=== PATIENT | female | born 1985 | race Caucasian/White ===

== ENCOUNTER 2020-07-12 20:22 | Emergency (ER) | payer MEDICARE, MEDICAID, SELFPAY ==
--- NOTE | 2020-07-12 20:34 | ED.OVERDOSE ---
HPI - Overdose General Chief Complaint: Overdose Stated Complaint: OVERDOSE,NARCAN GIVEN Source: patient, EMS and police Mode of arrival: EMS Limitations: no limitations History of Present Illness HPI Narrative: 34-year-old female presents via EMS by police escort for overdose. Patient was found unresponsive by bystanders, given several doses of Narcan and brought to the emergency department for evaluation. Patient is angry, crying, asking us not to take her belongings, stating that this is against her rights as a person, she states that she has not suicidal or homicidal, reports that she was just ?taking a nap in the hallway?. She does report to using heroin earlier today. She is not answering any questions regarding health history. complaint: accidental overdose Onset (ago): hour(s) (Within the hour of arrival) Timing confirmed by: other Intent: other (Accidental overdose) Context: Accidental Overdose: wanted to get high Treatments Prior to Arrival: narcan Related Data Allergies Allergy/AdvReac Type Severity Reaction Status Date / Time latex [LATEX] Allergy Mild SWELLING Verified 07/12/20 20:35 haloperidol [From HALDOL] Allergy Unknown HIVES Verified 07/12/20 20:35 From HALDOL Allergy Unknown HIVES Uncoded 01/13/20 17:08 Review of Systems Review of Systems: Constitutional: No Fever, No Chills ENT/Mouth: No sore throat, No Rhinorrhea Eyes: No Eye Pain, No Swelling, No Redness Cardiovascular: No Chest Pain, No SOB Respiratory: No Cough, No Sputum Gastrointestinal: No Nausea, No Vomiting, No Diarrhea, No abdominal Pain Genitourinary: No Dysuria, No Hematuria Musculoskeletal: No joint pain, No Myalgias, No Joint Swelling Skin: No Skin Lesions, No rash Neuro: No Weakness, No Numbness, No Loss of Consciousness, No Dizziness, No Headache Psych: No Anxiety, No Depression, No SI/HI/AH/VH Heme/Lymph: No Bruising, No Bleeding,No Lymphadenopathy Endocrine: No Polyuria, No Polydipsia Yes all other systems are reviewed and are negative [facility] Past Medical History Attestation statement: The following information was validated with the patient. Source: old records reviewed Social History Social History Advance Directives: No Physical Exam Vital Signs: Vital Signs: Last Vital Signs Temp 97.8 F 03/17/21 20:36 Pulse 130 H 07/12/20 20:36 Resp 16 07/12/20 20:36 BP 145/73 H 07/12/20 20:36 Pulse Ox 96 07/12/20 20:36 Body Mass Index 23.3 Appearance: Alert. Oriented X3. No acute distress. Eyes: Pupils equal, round and reactive to light. ENT: Pharynx normal. Neck: Normal inspection. Neck supple. CVS: Normal heart rate and rhythm. Pulses normal. Respiratory: No respiratory distress. Breath sounds normal. Abdomen: Soft and nontender. Skin: Skin warm and dry. Normal skin color. Normal skin turgor. Extremities: No lower extremity edema. Neuro: No motor deficit. No sensory deficit. Course Course Course Narrative: 34-year-old female presents via EMS and police for overdose. Given several doses of Narcan by bystanders. Patient is angry, anxious, does not want her belongings taken away from her. I suspect that she is homeless and these are all the belongings that she has in her possession. Patient is agreed to allow the possessions to be placed behind her stretcher. She does understand that if she reaches into her bag for anything at all that they would be taken away. Once she realized that her belongings would stay with her she was calm and cooperative. Her vital signs were taken during time of emotional distress. Patient was offered track coach, she agreed. No detox beds available, plan is for patient find detox on her own in the morning. 9:40 p.m. patient is alert oriented x4, answering questions politely and appropriately, maintaining O2 sats at 99% room air, heart rate 87, blood pressure 122/75, respiration rate 16 even unlabored. Patient discharged home. MDM - Overdose Differential Diagnosis Differential diagnosis: Likely drug overdose Medical Records Attestation: I reviewed the patient's medical records. Discharge Plan Discharge Clinical Impression: Drug overdose Patient Disposition: Home, Self-Care Instructions: Opioid Use Disorder (ED) Additional Instructions: Please consider detox. Thank you for choosing this emergency department for evaluation. Please follow-up with primary care physician as needed. Return to the emergency department for any new, concerning, or worsening symptoms. Interventions: ED Discharge Assessment Last Done: 07/12/20 23:12 Discharge Date/Time: 07/12/20 23:15
[2020-07-12 20:36] VITALS: BP 145/73; PULSE 130; RESP 16; TEMP 36.6; O2SAT 96; BMI 23.3
--- NOTE | 2020-07-12 21:17 | MHC.RECOVSUP ---
? Reason for consult Overdose o Current location: ED9 o Identified substance use concern: Heroin - Overdose - Seeking ATS (detox) - Support ? Intervention: o ATS bed search started 9pm/completed 9:30pm o Community resources provided o Harm reduction discussion ? Plan: o Patient to follow up with [facility] after discharge ? Additional information: Patient wants to go to a detox and a senior living program. There was no beds available at moment. Patient was given [facility] information and suggested that patient follow up in the morning to help find patient a detox bed..
--- NOTE | 2020-07-12 21:37 | PC.NURSE ---
pt awake and alert. provider agreed to monitor pt for 2 hours, for observation. pt admits she relapsed and injected 1 bag of heroin. pt using phone to call for a ride.
--- NOTE | 2020-07-12 23:15 | PC.NURSE ---
NARCAN GIVEN TO PATIENT TO TAKE WITH HER.
== END 2020-07-12 23:15 | disposition home or self-care (01) ==
PROVIDERS: Emergency Provider Emergency Medicine
DX: T40.1X1A Poisoning by heroin, accidental (unintentional), initial encounter (principal); Y92.481 Parking lot as the place of occurrence of the external cause; Z59.0 Homelessness
CPT/HCPCS: 99283